=== PATIENT | female | born 1985 | race Caucasian/White ===

== ENCOUNTER 2016-05-20 09:05 | Emergency (ER) | payer MEDICAID ==
[2016-05-20 09:20] VITALS: RESP 16; TEMP 98.4; O2SAT 96
[2016-05-20 09:32] LABS: COLOR ORANGE; PH,URINE 6.5 (5.0-7.5)
[2016-05-20 09:43] LABS: BACTERIA 2+ /hpf (NONE SEEN); RENAL EPITHELIAL CELLS OCCASIONAL /hpf (NONE SEEN)
--- NOTE | 2016-05-20 09:43 | UCPHY ---
H & P Time Seen by Provider: 05/20/16 09:42 Patient Type: Established HPI/ROS: Chief complaint. Urinary frequency HPI. 30-year-old female with 3 day history urinary urgency and burning. Yesterday she developed left flank pain. No fever but she has had some chills. Nausea yesterday without vomiting. She had some leftover Macrobid from a previous UTI which she started 2 days ago. No chest discomfort other or trouble breathing. No anterior abdominal pain ROS Constitutional. no fever/chills, no weakness Eyes. no problems with vision ENT. no sore throat, no nasal drainage Cardiovascular. no chest pain Respiratory. no shortness of breath, no cough Abdominal. Left flank pain . Urinary frequency and burning MS. no calf pain/swelling, no neck/back pain, no joint pain Skin. no rash Lymph. no swollen glands Neuro. no headache, no dizziness, no difficulty walking or with speech Past Medical/Surgical History: Past medical history kidney stones, hysterectomy, breast augmentation Social History: Single, nonsmoker, no alcohol Smoking Status: Former smoker Physical Exam: General Appearance: Alert well-developed female mild distress vital signs are stable. Afebrile Eyes: Pupils equal and round no pallor or injection. ENT, Mouth: Mucous membranes are moist. Respiratory: There are no retractions, lungs are clear to auscultation. Cardiovascular: Regular rate and rhythm. Gastrointestinal: Abdomen is soft and nontender, no masses, bowel sounds normal. Left flank pain to palpation Neurological: Awake and alert, sensory and motor exams grossly normal. Skin: Warm and dry, no rashes. Musculoskeletal: Neck is supple nontender. Extremities symmetrical, full range of motion. Psychiatric: Patient is oriented X 3, there is no agitation. Constitutional: Initial Vital Signs Temperature (C) 36.9 C 05/20/16 09:18 Heart Rate 64 05/20/16 09:18 Respiratory Rate 16 05/20/16 09:18 Blood Pressure 124/82 H 05/20/16 09:18 O2 Sat (%) 96 05/20/16 09:18 O2 Delivery Mode Room Air Allergies/Adverse Reactions: No Known Allergies Allergy (Verified 05/20/16 09:20) Home Medications: Medication Instructions Recorded Cephalexin [Keflex (*)] 500 mg PO TID #21 cap 05/20/16 Multivitamin 05/20/16 Ondansetron Odt [Zofran Odt] 4 mg PO Q4PRN PRN #4 tab 05/20/16 Medical Decision Making ED Course/Re-evaluation: Urinalysis is positive for urinary tract infection Re-evaluation 9:50 a.m. patient is stable. She and I discussed laboratory evaluation, treatment plan including criteria for return importance of follow- up and further evaluation. She expresses understanding and agreement Differential Diagnosis: This appears to be untreated urinary tract infection now early pyelonephritis. Minimal RBCs in the urine and I do not think that this is consistent with kidney stone as the patient has chills as well as urinary frequency and dysuria. Likely partially treated as the patient has been on Macrobid for 2 days. - Data Points Laboratory Results: 05/20/16 09:24 Urine Color ORANGE Urine Appearance HAZY Urine pH 6.5 (5.0-7.5) Ur Specific [place] 1.020 (1.002-1.030) Urine Protein NEGATIVE (NEGATIVE) Urine Ketones NOT REPORTED (NEGATIVE) Urine Blood NOT REPORTED (NEGATIVE) Urine Nitrate NOT REPORTED (NEGATIVE) Urine Bilirubin NEGATIVE (NEGATIVE) Urine Urobilinogen NOT REPORTED EU EU (0.2-1.0) Ur Leukocyte Esterase NOT REPORTED (NEGATIVE) Urine RBC 3-5 /hpf H /hpf (0-3) Urine WBC 10-15 /hpf H /hpf (0-3) Ur Epithelial Cells 1+ /lpf /lpf (NONE-1+) Ur Renal Epithelial Cell OCCASIONAL /hpf H /hpf (NONE SEEN) Urine Bacteria 2+ /hpf H /hpf (NONE SEEN) Ur Culture Indicated? INDICATED H (NI) Urine Glucose NOT REPORTED (NEGATIVE) Departure - Departure Disposition: Home, Routine, Self-Care Clinical Impression: Pyelonephritis Condition: Good Instructions: Kidney Infection (ED) Additional Instructions: Drink plenty of fluids and stay hydrated. Peridium for discomfort. Cephalexin as antibiotic. Zofran if needed for nausea and vomiting. Return for worsening pain fever, vomiting. Recheck in 2 days if not improving Referrals: NONE *PRIMARY CARE P,. [Primary Care Provider] - As per Instructions Sachin Benoit DO [Doctor of Osteopathy] - 2-3 days, if not improved Prescriptions: Cephalexin [Keflex (*)] 500 mg PO TID #21 cap Ondansetron Odt [Zofran Odt] 4 mg PO Q4PRN PRN #4 tab PRN Reason: Nausea/Vomiting, Use 1st - PQRS PQRS Measurement: 134: Depression screening and followup, PRIME MD-PHQ2 (12 years and older) Over the last 2 weeks, how often have you been bothered by any of the following problems? 1. Feeling down, depressed, or hopeless? 2. Little interest or pleasure in doing things? Patient answered no to both 1 and 2 130: Documentation of medications. Reviewed all patient medications, doses, route and frequency. 226: Do you smoke? No.
[2016-05-20 10:10] VITALS: BP 126/82; PULSE 61
== END 2016-05-20 10:05 | disposition home or self-care (01) ==
LOC: CED 09:05
DX: N12 Tubulo-interstitial nephritis, not specified as acute or chronic (principal)
CPT/HCPCS: 81003-PO; 81015-PO; 99214-PO; G0463-PO